=== PATIENT | female | born 1955 | race African-American/Black ===

== ENCOUNTER 2021-07-25 13:37 | Emergency (ER) | payer MEDICARE, MEDICAID ==
[~2021-07-25] VITALS: Ht 165.1 cm; Wt 69.0 kg
[2021-07-25] MEDS ORDERED: HYDROCODONE/ACETAMINOPHEN 5/325MG TABLET PO ONE (14:00)
[2021-07-25] MEDS ORDERED: HYDR-4001 MT ×2 (14:36→16:39)
[2021-07-25] MEDS ORDERED: IBUP-2029 MT (14:36)
[2021-07-25 15:00] VITALS: BP 163/91
== END 2021-07-25 15:11 | disposition home or self-care (01) ==
LOC: ER 14:02
DX: S82.52XA Displaced fracture of medial malleolus of left tibia, initial encounter for closed fracture (principal); S82.832A Other fracture of upper and lower end of left fibula, initial encounter for closed fracture; I10 Essential (primary) hypertension; Z88.2 Allergy status to sulfonamides; Z88.0 Allergy status to penicillin; X50.1XXA Overexertion from prolonged static or awkward postures, initial encounter; Y93.89 Activity, other specified; Y92.098 Other place in other non-institutional residence as the place of occurrence of the external cause
CPT/HCPCS: 29515; 73610; 73630; 99284